=== PATIENT | male | born 1980 | race Caucasian/White ===

== ENCOUNTER 2018-09-23 20:08 | Emergency (ER) | payer OTHER ==
[~2018-09-23] VITALS: Ht 177.8 cm; Wt 83.9 kg
[~2018-09-23 20:08] MED LIST: HYDROCODON-ACE1 EAC8 PO; PERCOCET 5-3251 EACH PO; PHENERGAN 25 MG25 M1 PO
[2018-09-23] MEDS ORDERED: VITAMIN D (20:18)
[2018-09-23] MEDS ORDERED: MAGNESIUM SUPPLEMENT (20:18)
[2018-09-23] MEDS ORDERED: CHROMIUM (20:19)
[2018-09-23] MEDS ORDERED: [UNRECOGNIZED DRUG - OTHER] (20:19)
[2018-09-23] MEDS ORDERED: ASPIR 8181 MG PO (20:19)
[2018-09-23 20:22] LABS: BASOPHILS 0.6 % (0.0-2.0); EOSINOPHILS 0.6 % (0.0-3.0); HEMATOCRIT 49.1 % (42.0-52.0); HEMOGLOBIN 17.1 gm/dL (14.0-18.0); LYMPHOCYTES 16.2 % (24.0-44.0); MCH 31.8 pg (26.0-34.0); MCHC 34.9 g/dL (28.0-37.0); MCV 91.2 fL (80.0-100.0); MONOCYTES 8.9 % (1.0-8.0); PLATELET COUNT 261 thou/uL (150-400); POLYS 73.7 % (36.0-66.0); RBC 5.38 mil/uL (4.50-6.00); WBC 10.9 thou/uL (4.0-11.0)
[2018-09-23 20:29] LABS: ANION GAP 13 mmol/L (7-16); BUN 16 mg/dL (7-18); CALCIUM 9.4 mg/dL (8.5-10.1); CHLORIDE 99 mmol/L (98-107); CO2 26 mmol/L (21-32); CREATININE 1.2 mg/dL (0.7-1.3); GLUCOSE 115 mg/dL (74-106); POTASSIUM 4.2 mmol/L (3.5-5.1); SODIUM 138 mmol/L (136-145)
[2018-09-23 20:36] LABS: URINE BILIRUBIN NEGATIVE (Negative); URINE BLOOD NEGATIVE (Negative); URINE CLARITY CLEAR; URINE COLOR YELLOW; URINE GLUCOSE-RANDOM* NEGATIVE (Negative); URINE KETONES TRACE (Negative); URINE LEUKOCYTES-REFLEX NEGATIVE (Negative); URINE NITRITE-REFLEX NEGATIVE (Negative); URINE PROTEIN (DIPSTICK) NEGATIVE (Negative); URINE SPECIFIC GRAVITY 1.025 (1.005-1.035); URINE UROBILINOGEN 0.2 E.U./dl (0.2-1.0)
[2018-09-23 20:38] LABS: ALBUMIN 4.4 g/dL (3.4-5.0); SALICYLATE 3.6 mg/dL (2.8-20.0); SGOT 12 U/L (15-37); SGPT 24 U/L (30-65); TOTAL BILIRUBIN 0.5 mg/dL (<0.1-1.0); TOTAL PROTEIN 8.2 g/dL (6.4-8.2); TROPONIN-I <0.06 ng/mL (<0.06)
[2018-09-23 20:44] LABS: AMP/METHAMP POSITIVE (Negative); BARBITURATES Negative (Negative); BENZODIAZEPINES POSITIVE (Negative); COCAINE Negative (Negative); METHADONE Negative (Negative); OPIATES Negative (Negative); PCP Negative (Negative)
[2018-09-23 23:37] VITALS: BP 124/77
--- NOTE | 2018-09-24 08:27 | EKG ---
[address] [place] [address] ELECTROCARDIOGRAM REPORT Name: TIPEDMUNDOCLAUDYALONDRA Room #: DEP [facility] CAMPUSReginaldo#: [id number] ������������������ Admission: 09/23/18 ������������������ Attend Phys: Discharge: 09/23/18 ������������������ Date of : 76 Report #: [id number] ����������������������������������������������������������������� [id number] THIS REPORT FOR: //name// [facility] ED Test Date: 2018-09-23 Test Time: 20:21:45 Pat Name: ALONDRA LEIGH Department: Room: Gender: Shareholder: kamila : 1980 Requested By: Franklin Borrego Order Number: [id number] MD: Edwin Sharp Measurements Intervals [place] Rate: 110 P: 81 MO: 142 QRS: 75 QRSD: 85 T: 60 QT: 325 QTc: 440 Interpretive Statements Sinus tachycardia Probable left atrial enlargement No previous ECG available for comparison Electronically Signed On 09-24-2018 8:27:07 [employer] by Edwin Sharp [email or web address] ��������������������������������������������� <ELECTRONICALLY SIGNED> ���������������������������������������� By: Edwin Sharp MD ��������������������������������������������� 09/24/18826 20 20 Edwin Sharp MD /ROBERT
== END 2018-09-23 23:38 | disposition home or self-care (01) ==
LOC: ER 20:08
PROVIDERS: Emergency Medicine
DX: F19.959 Other psychoactive substance use, unspecified with psychoactive substance-induced psychotic disorder, unspecified (principal); F15.10 Other stimulant abuse, uncomplicated; R00.0 Tachycardia, unspecified; F17.210 Nicotine dependence, cigarettes, uncomplicated